=== PATIENT | female | born 2000 | race Caucasian/White ===

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

== ENCOUNTER → 2019-01-30 | Outpatient (CLI) | payer OTHER ==
--- NOTE | 2019-01-30 14:24 | RADIOLOGY REPORT (SQ) ---
EXAM DESCRIPTION: CT SOFT TISSUE NECK WITH; CT CHEST WITH COMPLETED DATE/TIME: 01/30/2019 1:51 pm; 01/30/2019 1:50 pm REASON FOR STUDY: R59.9 ENLARGED LYMPH NODES, UNSPECIFIED R59.9 ENLARGED LYMPH NODES, UNSPECIFIED COMPARISON: None. TECHNIQUE: CT scan of the chest performed using helical scanning technique with dynamic intravenous contrast injection. Images reviewed with lung, soft tissue and bone windows. Reconstructed coronal and sagittal MPR and MIP images reviewed. All images stored on PACS. All CT scanners at this facility use dose modulation, iterative reconstruction, and/or weight based d osing when appropriate to reduce radiation dose to as low as reasonably achievable (ALARA). [facility]: Dose Right [facility]: CareDose [facility]: Dose Right [facility]: Teradose 4D [facility]: Smart beSUCCESS CONTRAST TYPE AND DOSE: Not reported. Please see technologist documentation. RENAL FUNCTION: None required. The patient is less than 50 years old. RADIATION DOSE: 948 mGy cm LIMITATIONS: None. FINDINGS: SKULL BASE: Unremarkable. LYMPH NODES: There are enlarged bilateral anterior cervical chain lymph nodes, right greater than le ft, the largest lymph nodes at right level IIa measuring 3.3 cm (series 601, image 57, series 2, imag e 51). FACIAL BONES: No fracture dislocation. OROPHARYNX AND LARYNX: Unremarkable. CERVICAL SPINE: Unremarkable very LUNGS AND PLEURA: No opacities, nodules, masses. No pneumothorax. No effusions. HILAR AND MEDIASTINAL STRUCTURES: No identified masses or abnormal nodes. Thymic remnant in the ante rior mediastinum. HEART AND VASCULAR STRUCTURES: No aneurysm or dissection. No central pulmonary emboli. No pericardi al effusion. HARDWARE: None in the chest. UPPER ABDOMEN: No significant findings. Limited exam. THYROID AND OTHER SOFT TISSUES: No masses. No adenopathy. BONES: No significant finding. OTHER: No other significant finding. IMPRESSION: 1. There are enlarged bilateral anterior cervical chain lymph nodes, right greater than left, the largest lymph nodes at right level IIa measuring 3.3 cm (series 601, image 57, series 2, im age 51). These lymph nodes are nonspecific and amenable to ultrasound-guided biopsy if desired. 2. No CT abnormality of the chest. No evidence of mediastinal or axillary lymphadenopathy. TECHNICAL DOCUMENTATION: JOB ID: [id number] Quality ID # [id number]: Final reports with documentation of one or more dose reduction techniques (e.g., Au tomated exposure control, adjustment of the mA and/or kV according to patient size, use of iterative reconstruction technique) 2010 [employer] All Rights Reserved Reading location - IP/workstation name: EB
== END ==
LOC: RAD 13:17
PROVIDERS: ATTEND Internal Medicine Hematology & Oncology
DX: R59.0 Localized enlarged lymph nodes (principal)
CPT/HCPCS: 70491; 71260

== ENCOUNTER 2019-02-20 08:31 | Day surgery (SDC) | payer OTHER ==
[2019-02-18 11:01] LABS: HEMATOCRIT 42.4 % (36.0-47.0); HEMOGLOBIN 14.5 g/dL (12.0-15.5); MEAN CORPUSCULAR HEMOGLOBIN 29.6 pg (27.0-33.4); MEAN CORPUSCULAR HGB CONC 34.2 g/dL (32.0-36.0); MEAN CORPUSCULAR VOLUME 87 fl (80-97); PLATELET COUNT 252 10^3/uL (150-450); RED BLOOD COUNT 4.89 10^6/uL (3.72-5.28); RED CELL DISTRIBUTION WIDTH 12.7 % (11.5-14.0); WHITE BLOOD COUNT 8.1 10^3/uL (4.0-10.5)
[~2019-02-20 08:31] MED LIST changes: -CEFAZOLIN 2 GM/D5W RTU 2 GM/50 ML RTUPB IV PRN; +CEFAZOLIN INJ 1 GM VIAL ONE; +RINGERS SOLUTION,LACTATED 1,000 ML IV PRN
[2019-02-20] MEDS ORDERED: FENTANYL CITRATE INJ/PF 100 MCG/2 ML AMPUL ONE ×2 (08:32→11:56)
[2019-02-20] MEDS ORDERED: MIDAZOLAM 2 MG/2 ML INJ ONE (08:33)
[2019-02-20] MEDS ORDERED: PROPOFOL INJ 200 MG/20 ML VIAL IV ONE ×2 (08:33)
[2019-02-20] MEDS ORDERED: METHYLENE BLUE 50 MG/10 ML AMPULE ONE (10:06)
[2019-02-20] MEDS ORDERED: LIDOCAINE 1%/EPINEPHRINE INJ 20 ML VIAL ONE (10:06)
[2019-02-20] MEDS ORDERED: MORPHINE SULFATE 10 MG/ML INJ IV PRN (10:39)
[2019-02-20] MEDS ORDERED: ONDANSETRON HCL INJ/PF 4 MG/2 ML SDV IV PRN (10:39)
[2019-02-20] MEDS ORDERED: DIPHENHYDRAMINE HCL 50 MG/ML VIAL IV PRN (10:39)
[2019-02-20] MEDS ORDERED: MEPERIDINE HCL/PF INJ 25 MG/1 ML DISP.SYRIN IV PRN (10:39)
[2019-02-20] MEDS ORDERED: PROMETHAZINE HCL INJ 25 MG/1 ML VIAL IV PRN (10:39)
[2019-02-20] MEDS ORDERED: FENTANYL CITRATE INJ/PF 100 MCG/2 ML AMPUL IV PRN ×3 (10:39)
[2019-02-20] MEDS ORDERED: OXYCODONE-ACETAMINOPHEN 5-325 MG TABLET PO PRN ×3 (10:39→11:49)
[2019-02-20] MEDS ORDERED: MICROFIBRILLAR COLLAGEN 1 GM PACK ONE (11:16)
--- NOTE | 2019-02-20 11:49 | Discharge Summary ---
Discharge Summary (SDC) - Discharge Final Diagnosis: Right cervical lymphadenopathy Date of Surgery: 02/20/19 Discharge Date: 02/20/19 Condition: Good Treatment or Instructions: WOUND CARE: 1) You may shower in 48 hours. Leave steri intact until they fall off on their own. If it is more comfortable, you may cover the wound with gauze and tape. 2) No swimming/bathing for 2 weeks. PAIN MANAGEMENT: 1) You may take Toradol 10mg one pill by mouth every six hours as needed for pain. Do not take additional NSAIDs with Toradol. You may take Tylenol. FOLLOW UP: 1) You may follow up with Dr. Stout in 7-10 days for wound check and pathology. Call clinic sooner with any questions/concerns. Prescriptions: Ketorolac Tromethamine [Toradol 10 mg Tablet] 10 mg PO Q6HP PRN #20 tablet PRN Reason: Referrals: SKYLAR RODRIGUEZ, SHEY [Primary Care Provider] - Discharge Diet: As Tolerated Discharge Activity: Activity As Tolerated, Balance Activity w/Rest, Walk Frequently Report the Following to Your Physician Immediately: Increase in Pain, Fever over 101 Degrees, Unusual Bleeding, Redness, Swelling, Warmth, Increased Soreness, Drainage-Foul Smelling
--- NOTE | 2019-02-20 11:54 | Operative Report ---
Operative Report DATE OF SURGERY: 02/20/19 PREOPERATIVE DIAGNOSIS: Cervical lymphadenopathy POSTOPERATIVE DIAGNOSIS: Same OPERATION: Ultrasound directed open excisional cervical lymph node biopsy SURGEON: SARITHA MATT TRANSITION PROGRAM MANAGER: DARIN OLEARY ANESTHESIA: GA TISSUE REMOVED OR ALTERED: Right cervical lymph node COMPLICATIONS: none ESTIMATED BLOOD LOSS: scant INTRAOPERATIVE FINDINGS: see below PROCEDURE: The patient was seen in the preop holding area with the right neck was marked. She was then taken to the main operating room general anesthesia was induced. Between the shoulder blades installed for chest elevation. The head and neck were sterilely rotated to the left, and extended. The right neck was prepped and draped in sterile fashion. Surgical plan and surgical timeout conducted. After reviewing the preoperative CT scan, was concluded that the largest cervical lymph node was in compartment to right neck anterior cervical region. Focused ultrasound of the neck confirmed the lobulated posterior of lymph nodes just inferior to the submandibular gland, and anterior to the right vessels of the neck. A percy was made on the skin for the planned incision, the skin in the status 1% plain lidocaine, approximately 4-1/2 cm incision was made in a slight curvilinear fashion, paralleling the angle of the mandible. The subcutaneous tissue was divided with electrocautery. Platysma divided with electrocautery. The cervical fascia was , and a branch of the auricular nerve was identified and swept to the side. It was preserved about the dissection. Using ultrasound as a guide, we identified the target lymph node just deep to the current plan of dissection. We swept some of the adventitia off of the lymph node, placed a Vicryl suture in the substance of the node and began dissecting the node away from surrounding structures including the right internal jugular vein. A small branch from the internal jugular vein going to the lymph node was clipped proximally once distally and divided. We Worked in a circumferential fashion the lymph node from the surrounding structures very carefully. The dominant lymph node was actually a fusion of several lymph nodes; after we had delivered a sizable mass of lymphoid tissue approximately 2- 1/2 cm in diameter, I felt that we could safely separate specimen from the remaining lymphoid tissue. This was done with a hemostat clamp. The target lymph node was removed the patient's neck, all stay sutures removed and the specimen sent fresh to pathology for permanent analysis. The dissected attachment point between the removed lymph node and the lymph node was oversewed with a 2-0 Vicryl suture. Hemostasis was excellent. We felt the operation was complete. We placed a Avitene in the recesses of the wound and allow the surrounding structures to relax into position. We were careful to keep the previously described nerve out of harm's way during the closure of the platysma which was performed with multiple 2-0 Vicryl sutures. The skin and subcutaneous tissue was approximately 3-0 Vicryl, and the skin closed with benzoin and Steri-Strips. Patient tolerated procedure well, extubated, taken recovery in stable condition. The physician investigative assistant, Ms. Smith, provided assistance during this case by: Assisting with retracting tissue, instillation of local anesthesia and closure of skin incisions.
[2019-02-20] MEDS ORDERED: OXYCODONE-ACETAMINOPHEN 5-325 MG TABLET ONE (12:31)
[2019-02-20] MEDS ORDERED: KETOROLAC TROMETHAMINE 60 MG/2 ML SDV ONE (13:34)
[2019-02-20] MEDS ORDERED: SUCCINYLCHOLINE CHLORIDE INJ 200 MG/10 ML VIAL ONE (13:34)
[2019-02-20] MEDS ORDERED: DEXAMETHASONE SOD PHOSPHATE INJ 4 MG/1 ML VIAL ONE (13:34)
[2019-02-20] MEDS ORDERED: ONDANSETRON HCL INJ/PF 4 MG/2 ML SDV ONE (13:34)
[2019-02-20] MEDS ORDERED: ROCURONIUM BROMIDE INJ 50 MG/5 ML VIAL IV ONE (13:34)
[2019-02-20 14:58] VITALS: BP 117/53
== END 2019-02-20 13:30 | disposition home or self-care (01) ==
LOC: OROUT 08:31
PROVIDERS: ATTEND Surgery
DX: L04.9 Acute lymphadenitis, unspecified (principal); E78.00 Pure hypercholesterolemia, unspecified
CPT/HCPCS: 36415; 88185 ×15; 88184; 85027; 81025; 88233; 88262; 88305 ×2; 38510; J2250; J0690; J3490 ×3; J1100; J1885; J3010; J0330; J2405; J2704; 320; Q9968

== ENCOUNTER 2019-03-16 19:35 | Emergency (ER) | payer OTHER ==
--- NOTE | 2019-03-16 20:43 | ER Document Report ---
ED Medical Screen (RME) - General Chief Complaint: Incision Problem Stated Complaint: POST SURGERY CHECK Time Seen by Provider: 03/16/19 20:24 Primary Care Provider: SKYLAR RODRIGUEZ FNP-C [Primary Care Provider] - Follow up as needed Mode of Arrival: Ambulatory Information source: Patient Notes: Patient is an otherwise healthy 19-year-old female presenting to the emergency department with concern for drainage at her surgical site on her right lateral neck. Patient reports she had a lymph node removed recently. She states that if you press on the area more foul smelling purulent drainage will come out of the incision. She is unsure if she has had any fevers. I have greeted and performed a rapid initial assessment of this patient. A comprehensive ED assessment and evaluation of the patient, analysis of test results and completion of the medical decision making process will be conducted by additional ED providers. I have specifically instructed the patient or family members with the patient to immediately return to any nursing staff should anything change in the patient's condition or with their chief complaint. This medical record was dictated with voice recognizing software. There may be grammatical, syntax errors that are unintended. TRAVEL OUTSIDE OF THE [place] IN LAST 30 DAYS: No - Related Data Allergies/Adverse Reactions: grass pollen Allergy (Mild, Verified 02/15/19 16:23) No Known Drug Allergies Allergy (Verified 01/23/18 14:30) cockroaches Allergy (Mild, Uncoded 02/15/19 16:23) Hives Past Medical History - Social History Frequency of alcohol use: None Drug Abuse: None - Past Medical History Cardiac Medical History: Reports: Hx Hypercholesterolemia Denies: Hx Coronary Artery Disease, Hx Heart Attack, Hx Hypertension Pulmonary Medical History: Reports: Hx Asthma - excerise induced Denies: Hx Bronchitis, Hx COPD, Hx Pneumonia Neurological Medical History: Denies: Hx Cerebrovascular Accident, Hx Seizures Renal/ Medical History: Denies: Hx Peritoneal Dialysis Musculoskeltal Medical History: Denies Hx Arthritis Past Surgical History: Reports: Hx Orthopedic Surgery - R foot - Immunizations Immunizations up to date: Yes Hx Diphtheria, Pertussis, Tetanus Vaccination: Yes Physical Exam - Vital signs Vitals: Temp Pulse Resp BP Pulse Ox 99.2 F 70 18 129/69 H 99 03/16/19 20:00 03/16/19 20:00 03/16/19 20:00 03/16/19 20:00 03/16/19 20:00 Course - Vital Signs Vital signs: Temp Pulse Resp BP Pulse Ox 99.2 F 70 18 129/69 H 99 03/16/19 20:00 03/16/19 20:00 03/16/19 20:00 03/16/19 20:00 03/16/19 20:00 Doctor's Discharge - Discharge Referrals: SKYLAR RODRIGUEZ, HAIR ASSISTANT-C [Primary Care Provider] - Follow up as needed
[2019-03-16 21:03] LABS: ABSOLUTE EOSINOPHILS # (AUTO) 0.2 10^3/uL (0.0-0.6); ABSOLUTE LYMPHOCYTES (AUTO) 2.5 10^3/uL (0.5-4.7); ABSOLUTE MONOCYTES (AUTO) 0.6 10^3/uL (0.1-1.4); ABSOLUTE NEUT (AUTO) 4.3 10^3/uL (1.7-8.2); BASOPHILS % (AUTO) 0.5 % (0-2); HEMATOCRIT 42.3 % (36.0-47.0); HEMOGLOBIN 14.3 g/dL (12.0-15.5); LYMPHOCYTES % (AUTO) 33.4 % (13-45); MEAN CORPUSCULAR HEMOGLOBIN 29.4 pg (27.0-33.4); MEAN CORPUSCULAR HGB CONC 33.9 g/dL (32.0-36.0); MEAN CORPUSCULAR VOLUME 87 fl (80-97); MONOCYTES % (AUTO) 7.5 % (3-13); PLATELET COUNT 301 10^3/uL (150-450); RED BLOOD COUNT 4.87 10^6/uL (3.72-5.28); RED CELL DISTRIBUTION WIDTH 12.6 % (11.5-14.0); SEGMENTED NEUTROPHILS % (AUTO) 56.6 % (42-78); TOTAL CELLS COUNTED % (AUTO) 100 %; WHITE BLOOD COUNT 7.6 10^3/uL (4.0-10.5)
[2019-03-16 21:19] LABS: ALBUMIN 4.4 g/dL (3.5-5.0); ALKALINE PHOSPHATASE 71 U/L (38-126); ANION GAP 9 (5-19); ASPARTATE AMINO TRANSFERASE 25 U/L (14-36); BILIRUBIN,DIRECT 0.1 mg/dL (0.0-0.4); BILIRUBIN,TOTAL 0.6 mg/dL (0.2-1.3); BLOOD UREA NITROGEN 7 mg/dL (7-20); CALCIUM 9.8 mg/dL (8.4-10.2); CARBON DIOXIDE 27 mmol/L (22-30); CHLORIDE 104 mmol/L (98-107); GLUCOSE 78 mg/dL (75-110); POTASSIUM 3.9 mmol/L (3.6-5.0); TOTAL PROTEIN 7.6 g/dL (6.3-8.2)
--- NOTE | 2019-03-16 21:52 | RADIOLOGY REPORT (SQ) ---
EXAM DESCRIPTION: CT NECK WITH IV CONTRAST COMPLETED DATE/TME: 03/16/2019 20:29 CLINICAL HISTORY: 19 years, Female, eval for R lateral neck abscess, s/p surgery COMPARISON: 01/30/2019 CT TECHNIQUE: 238 Images stored on PACS. All CT scanners at this facility use dose modulation, iterative reconstruction, and/or weight based dosing when appropriate to reduce radiation dose to as low as reasonably achievable (ALARA). [facility]: Dose Right [facility]: CareDose [facility]: Dose Right [facility]: Teradose 4D [facility]: Smart [employer] LIMITATIONS: None. FINDINGS: Limited evaluation of brain parenchyma is unremarkable. The globes are intact. The paranasal sinuses are well aerated. The visualized parotid and submandibular glands are unremarkable. There are inflammatory changes along the posterior margin of the right submandibular gland. There are adjacent enlarged lymph nodes, the largest in the level 2A. This is grossly similar to the prior exam measuring approximately 2.0 x 1.7 cm. There is an immediately adjacent lymph node having a slightly necrotic appearance measuring 1.5 x 1.1 cm. This was also present previously, without necrosis. This could reflect small developing abscess. No abnormal gas within the nodule. Other scattered nonenlarged to mildly enlarged lymph nodes in the submandibular chains and submental chains are present bilaterally. Nonenlarged to mildly enlarged left jugulodigastric chain and posterior triangle chain lymph nodes are also present. Limited evaluation of the lung apices are unremarkable IMPRESSION: Areas of minor subcutaneous inflammatory change of the right neck, as above. Scattered nonenlarged and mildly enlarged cervical chain lymph nodes. The largest is in the right level 2A region. This was also present previously. Immediately adjacent no shows evidence of slight necrosis on today's exam. Superimposed infectious process or developing abscess at this site would be difficult to exclude entirely. This measures 1.5 x 1.1 cm. TECHNICAL DOCUMENTATION: Quality ID # 436: Final reports with documentation of one or more dose reduction techniques (e.g., Automated exposure control, adjustment of the mA and/or kV according to patient size, use of iterative reconstruction technique) copyright 2011 [employer]- All Rights Reserved
--- NOTE | 2019-03-16 22:52 | ER Document Report ---
Entered by HIRAM ALFONSO SCRIBE 03/16/19 2208 Acting as scribe for:RAFAEL CASTELLANOS IV, MD ED General - General Chief Complaint: Incision Problem Stated Complaint: POST SURGERY CHECK Time Seen by Provider: 03/16/19 20:24 Primary Care Provider: SKYLAR RODRIGUEZ FNP-C [Primary Care Provider] - Follow up as needed Mode of Arrival: Ambulatory Information source: Patient, [facility] Records Notes: Patient is a 19 year old female with recent neck surgery presenting to the emergency department with concerns regarding her surgical site at her right anterior neck having purulent drainage. On 01/20/19 the patient had surgery done by here by Dr. Stout for enlarged lymph nodes. She states that she noticed her neck draining yesterday while she was in bed. Patient denies having recent fever. She states that she has not been able to sleep well lately. Consulted Dr. Waggoner at 22:15, who agreed to accept the patient. TRAVEL OUTSIDE OF THE [place] IN LAST 30 DAYS: No - HPI Notes: Patient is a 19-year-old female that presents to the emergency department for evaluation of drainage from a right anterior cervical surgical incision site. Patient was evaluated earlier this month for bilateral anterior lymph node swelling and underwent ultrasound guided biopsy of her right anterior cervical lymph node chain on 02/20/[address] Stout. Patient states that she has noticed for the past 2 days she has had swelling and tenderness in the region of the surgical incision and last night noticed that she started having foul- smelling discharge from the surgical site. Patient does not think she has had fevers but states that she has had difficulty sleeping because of chills and pa in the past 2 nights. Patient denies difficulty swallowing, difficulty breathing. Differential diagnosis: Postsurgical complication, cellulitis, abscess - Related Data Allergies/Adverse Reactions: grass pollen Allergy (Mild, Verified 02/15/19 16:23) No Known Drug Allergies Allergy (Verified 01/23/18 14:30) cockroaches Allergy (Mild, Uncoded 02/15/19 16:23) Hives Past Medical History - General Information source: Patient, [facility] Records - Social History Smoking Status: Never Smoker Cigarette use (# per day): No Chew tobacco use (# tins/day): No Smoking Education Provided: No Frequency of alcohol use: None Drug Abuse: None Family History: Reviewed & Not Pertinent Patient has suicidal ideation: No Patient has homicidal ideation: No - Past Medical History Cardiac Medical History: Reports: Hx Hypercholesterolemia Pulmonary Medical History: Reports: Hx Asthma - excerise induced Past Surgical History: Reports: Hx Orthopedic Surgery - R foot - Immunizations Immunizations up to date: Yes Hx Diphtheria, Pertussis, Tetanus Vaccination: Yes Review of Systems - Review of Systems Notes: Patient is here for concern of drainage at a surgical site located on her right lateral neck. Constitutional: No symptoms reported. denies: Fever EENT: No symptoms reported Cardiovascular: No symptoms reported Respiratory: No symptoms reported Gastrointestinal: No symptoms reported Genitourinary: No symptoms reported Female Genitourinary: No symptoms reported Musculoskeletal: No symptoms reported Skin: No symptoms reported Hematologic/Lymphatic: No symptoms reported Neurological/Psychological: No symptoms reported -: Yes All other systems reviewed and negative Physical Exam - Vital signs Vitals: Temp Pulse Resp BP Pulse Ox 99.2 F 70 18 129/69 H 99 03/16/19 20:00 03/16/19 20:00 03/16/19 20:00 03/16/19 20:00 03/16/19 20:00 - Notes Notes: Physical Exam: General: Alert, appears well. HEENT: Normocephalic. Atraumatic. PERRL. Extraocular movements intact. Oropharynx clear. Neck: 6 cm well-healed linear incision located at the right anterior neck. Small amount of purulent, dry discharge at the inferior aspect. Streaky erythema present. Tenderness to palpation. Respiratory: No respiratory distress. Clear and equal breath sounds bilaterally. Cardiovascular: Regular rate and rhythm. Abdominal: Normal Inspection. Non-tender. No distension. Normal Bowel Sounds. Back: No gross abnormalities. Extremities: Moves all four extremities. Upper extremities: Normal inspection. Normal ROM. Lower extremities: Normal inspection. No edema. Normal ROM. Neurological: Normal cognition. AAOx4. Normal speech. Psychological: Normal affect. Normal Mood. Skin: Warm. Dry. Normal color. Course - Re-evaluation Re-evalutation: 03/16/19 22:39 Findings of ED MSE discussed with patient. Patient informed that this MD would get in touch with the surgicalist director operations to discuss treatment options. 03/16/19 23:19 Dr. Sauer came and saw the patient in the ED. His recommendation is to start the patient on Keflex and put a dressing over the site of drainage. He recommended that the patient follow-up with Dr. Stout on 03/18/2019 or 03/19/2019. This MD will provide the patient with a work note a first dose of Keflex now and a prescription for Keflex 500 mg p.o. 4 times daily x7 days. - Vital Signs Vital signs: Temp Pulse Resp BP Pulse Ox 99.2 F 70 18 129/69 H 99 03/16/19 20:00 03/16/19 20:00 03/16/19 20:00 03/16/19 20:00 03/16/19 20:00 - Laboratory Result Diagrams: 03/16/19 20:46 03/16/19 20:46 - Diagnostic Test Radiology reviewed: Reports reviewed - Consults dr acosta Time consulted: 22:15 Reason for consultation: 03/16/19 22:40 surgical site infection Consulted provider: will come to ER Discharge - Discharge Clinical Impression: Post surgical complication Clinical Impression: (Ruled Out): Infection following a procedure, deep incisional surgical site, initial encounter Condition: Good Disposition: HOME, SELF-CARE Instructions: Wound Infection ([facility]) Additional Instructions: Return to the Emergency Department without delay if any worse. HOME CARE INSTRUCTIONS & INFORMATION: Thank you for choosing us for your medical needs. We hope you're satisfied with the care you received. After you leave, you must properly care for your problem and, at the same time, observe its progress. Any condition can change. Some illnesses can change rapidly over hours or days. If your condition worsens, return to the Emergency Department or see your physician promptly. ABOUT YOUR X-RAYS AND EKG'S: If you had an EKG or X-rays taken, they have been read by the Emergency Physician. The X-rays and EKG's will also be read by a Radiologist or Sand Buffer within 24 hours. If discrepancies are noted, you will be notified by telephone. Please be certain the ED has a correct telephone number & address where you can be reached. Also, realize that some fractures or abnormalities do not show up on initial X-rays. If your symptoms continue, see your physician. ABOUT YOUR LABORATORY TEST: If you had laboratory tests, the results have been reviewed by the Emergency Physician. Some test results (for example cultures) may not be available for several days. You will be contacted if any test result shows you need additional treatment. Please be certain the ED has a correct telephone number and address where you can be reached. ABOUT YOUR MEDICATIONS: You will receive instructions on how to take your medicine on the prescription label you receive. Additional information may be provided by the Pharmacy. If you have questions afterwards, call the ED for clarification or further instructions. Some prescribed medications may cause drowsiness. Do not perform tasks such as driving a car or operating machinery without consulting your Pharmacist. If you feel you need a refill of pain medication, your condition will need re-evaluation. Please do not call for a refill of any medication. ABOUT YOUR SIGNATURE: Signature of this document acknowledges to followin. Understanding that you received emergency treatment and that you may be released before al medical problems are known or treated. Please be certain the ED has a correct phone number & address where you can be reached. 2. Acknowledgement that you will arrange for follow-up care as recommended. 3. Authorization for the Emergency Physician to provide information to your follow-up Physician in order to maximize your care. AT ANY TIME, IF YOUR SYMPTOMS CHANGE SIGNIFICANTLY OR WORSEN OR YOU DEVELOP NEW SYMPTOMS, RETURN TO THE EMERGENCY DEPARTMENT IMMEDIATELY FOR RE-EVALUATION. OUR GOAL IS TO PROVIDE EXCELLENT MEDICAL CARE! WE HOPE THAT WE HAVE MET YOUR EXPECTATIONS DURING YOUR EMERGENCY DEPARTMENT VISIT AND THAT YOU FEEL YOU HAVE RECEIVED EXCELLENT CARE! Prescriptions: Cephalexin Monohydrate [Keflex 500 mg Capsule] 500 mg PO Q6H 7 Days capsule Forms: Return to Work Referrals: SKYLAR RODRIGUEZ, ANGLE BENDER-C [Primary Care Provider] - Follow up as needed SARITHA STOUT MD [ACTIVE STAFF] - 03/18/19 I personally performed the services described in the documentation, reviewed and edited the documentation which was dictated to the scribe in my presence, and it accurately records my words and actions.
[2019-03-16] MEDS ORDERED: CEPHALEXIN 500 MG CAPSULE PO ONE (23:21)
--- NOTE | 2019-03-16 23:22 | PDOC CONSULTATION ---
Consultation Consult Date: 03/16/19 Provider Consulted: TITO SALAMANCA Consult reason:: Evaluate right neck wound History of Present Illness Admission Date/PCP: SHEY VALDERRAMA Patient complains of: Drainage at right neck wound History of Present Illness: ANGÉLICA SAM is a 19 year old female status post right cervical lymph node excisional biopsy just over 3 weeks ago. Patient apparently has had some soreness in the area and persistent enlargement of lymph nodes in this area as well as the left side. Patient noted cloudy drainage from the lower pole of her wound starting yesterday. She has had some discomfort in this area but not severe pain. No fever although she has been experiencing some night sweats over the past several weeks. Patient notes about 20 pound weight gain over the past several months. Otherwise patient feels well. Past Medical History Cardiac Medical History: Reports: Hyperlipidema Denies: Coronary Artery Disease, Myocardial Infarction, Hypertension Pulmonary Medical History: Reports: Asthma - excerise induced Denies: Bronchitis, Chronic Obstructive Pulmonary Disease (COPD), Pneumonia Neurological Medical History: Denies: Seizures Musculoskeltal Medical History: Denies: Arthritis Hematology: Denies: Anemia Past Surgical History Past Surgical History: Reports: Orthopedic Surgery - R foot, Other - Right cervical lymph node excisional biopsy. Social History Smoking Status: Never Smoker Family History Family History: Reviewed & Not Pertinent Parental Family History Reviewed: Yes Children Family History Reviewed: Yes Sibling(s) Family History Reviewed.: Yes Medication/Allergy Home Medications: Ketorolac Tromethamine [Toradol 10 mg Tablet] 10 mg PO Q6HP PRN #20 tablet 02/20/19 Allergies/Adverse Reactions: grass pollen Allergy (Mild, Verified 02/15/19 16:23) No Known Drug Allergies Allergy (Verified 01/23/18 14:30) cockroaches Allergy (Mild, Uncoded 02/15/19 16:23) Hives Physical Exam Vital Signs: Temp Pulse Resp BP Pulse Ox 99.2 F 70 18 129/69 H 99 03/16/19 20:00 03/16/19 20:00 03/16/19 20:00 03/16/19 20:00 03/16/19 20:00 Intake & Output 03/15/19 03/16/19 03/17/19 06:59 06:59 06:59 Weight 72.1 kg General appearance: PRESENT: no acute distress, cooperative Neck exam: PRESENT: other - Palpable bilateral cervical lymphadenopathy. Right upper cervical scar that is well-healed other than the inferior portion with a slight opening but with no surrounding erythema nor induration. There was a slight drainage but no fluctuance. There is tenderness in this region. No crepitus. Respiratory exam: PRESENT: clear to auscultation emilie Cardiovascular exam: PRESENT: RRR GI/Abdominal exam: PRESENT: other - Soft, nondistended, nontender to palpation with no palpable hepatosplenomegaly. Results Laboratory Results: 03/16/19 20:46 03/16/19 20:46 03/16/19 03/16/19 20:46 20:46 WBC 7.6 RBC 4.87 Hgb 14.3 Hct 42.3 MCV 87 MCH 29.4 MCHC 33.9 RDW 12.6 Plt Count 301 Seg Neutrophils % 56.6 Sodium 140.0 Potassium 3.9 Chloride 104 Carbon Dioxide 27 Anion Gap 9 BUN 7 Creatinine 0.63 Est GFR ( Amer) > 60 Glucose 78 Calcium 9.8 Total Bilirubin 0.6 AST 25 Alkaline Phosphatase 71 Total Protein 7.6 Albumin 4.4 Impressions: Soft Tissue Neck CT 03/16/19 20:29 IMPRESSION: Areas of minor subcutaneous inflammatory change of the right neck, as above. Scattered nonenlarged and mildly enlarged cervical chain lymph nodes. The largest is in the right level 2A region. This was also present previously. Immediately adjacent no shows evidence of slight necrosis on today's exam. Superimposed infectious process or developing abscess at this site would be difficult to exclude entirely. This measures 1.5 x 1.1 cm. TECHNICAL DOCUMENTATION: Quality ID # 436: Final reports with documentation of one or more dose reduction techniques (e.g., Automated exposure control, adjustment of the mA and/or kV according to patient size, use of iterative reconstruction technique) copyright 2011 [employer]- All Rights Reserved Assessment & Plan - Diagnosis (1) Wound drainage Is this a current diagnosis for this admission?: Yes Plan: Drainage at the inferior pole of a cervical lymph node biopsy wound from over 3 weeks ago. Pathology demonstrated reactive lymph node with no evidence of malignancy. CT scan demonstrates enlarged lymph nodes with possible early necrosis of 1 of the lymph nodes. Uncertain whether she has an abscess, however with no erythema and no induration I suspect that she either had a seroma that ruptured inferiorly versus a slight lymphatic leak. I do not see visible suture knot. The slight opening at the inferior pole of her incision was cleansed with alcohol swab and the scant amount of drainage that was expressed was swabbed for Gram stain and culture. Will initially manage patient conservatively with K eflex. We will have the patient wash this area gently with this soap and water daily and cover it with a Band-Aid. She is to follow-up at [facility] early this coming week. I have asked her to stay out of work until the follow-up visit since she works in a hot and humid environment. If she were to develop spreading erythema, she is to call me immediately.
[2019-03-16 23:39] VITALS: BP 117/74
== END 2019-03-16 23:39 | disposition home or self-care (01) ==
LOC: ER 19:35
DX: L76.82 Other postprocedural complications of skin and subcutaneous tissue (principal)
CPT/HCPCS: 36415; 70491; 80053; 85025; 87070; 87075; 87205; 99284